=== PATIENT | male | born 1980 | race Caucasian/White ===

== ENCOUNTER 2019-10-08 11:57 | Emergency (ER) | payer OTHER ==
[~2019-10-08] VITALS: Ht 167.6 cm; Wt 90.7 kg
[~2019-10-08 11:57] MED LIST: ALBU8HFA2 INH; ALBU90I INH; ALBU90OI INH; ALBU90OI6 INH; AMOCLA875 PO; AMOX500 PO; AZIT250 PO; AZIT500 PO; BENADRYL25 MG PO; CEPH500 PO; CIPDEXSU OT; CIPR500 PO; CLIN150 PO; CLIN300 PO; CRUTCH USE; DIPH50; ERYT333ERA PO; FAMO40 PO; FLUO.05TC TOP; GUAPHELA PO; HYDACE10B PO; HYDACE5; HYDACE5 PO; HYDACE5325 PO; HYDACE7.5 PO; HYDCOR2.5C PR; HYDGUAL120 PO; HYDMOR2 PO; IBUHYD PO; IBUP200; IBUP200 PO; IBUP800; IBUP800 PO; KETO10 PO; META800 PO; METPRE4DP PO; MORP30ER PO; NAPR500 PO; NEOPOLHCSU OT; OMEP20ER PO; OXYACE5T PO; OXYACE7.5T PO; OXYC15ER PO; OXYC5 PO; PANT40 PO; PRED20 PO; PROM25 PO; Pepcid20 MG PO; Prednisone20 MG PO; Prednisone50 MG PO; RXOXYACE PO; SULTRIDS PO; TEMOVATE15 GM EXT; TRAM50 PO; [UNRECOGNIZED DRUG - OTHER]
[2019-10-08 12:15] LABS: BASOPHILS ABSOLUTE AUTO 0.07 K/mm3 (0.00-0.23); BASOPHILS PERCENT AUTO 1 % (0-2); EOSINOPHILS ABSOLUTE AUTO 0.23 K/mm3 (0.00-0.68); EOSINOPHILS PERCENT AUTO 3 % (0-6); Hematocrit 43.5 % (37.0-53.0); Hemoglobin 14.1 g/dL (13.5-17.5); IMMATURE GRAN ABSOLUTE AUTO 0.01 K/mm3 (0.00-0.10); IMMATURE GRAN PERCENT AUTO 0 % (0-1); LYMPHOCYTES ABSOLUTE AUTO 1.93 K/mm3 (0.84-5.20); LYMPHOCYTES PERCENT AUTO 25 % (21-46); MONOCYTES PERCENT AUTO 6 % (4-13); Mean Corpuscular HGB 28.8 pg (26.0-34.0); Mean Corpuscular HGB Conc 32.4 g/dL (31.5-36.5); Mean Corpuscular Volume 89 fL (80-100); Mean Platelet Volume 10.4 fL (9.1-12.4); NEUTROPHILS ABSOLUTE AUTO 5.07 K/mm3 (1.96-9.15); NEUTROPHILS PERCENT AUTO 65 % (41-73); Platelet Count 265 K/mm3 (150-400); RDW Coefficient Variation 13.3 % (11.7-14.2); RDW Standard Deviation 43.3 fL (35.1-46.3); Red Blood Cell Count 4.89 M/mm3 (4.30-5.90); White Blood Cell Count 7.81 K/mm3 (4.00-11.30)
[2019-10-08 12:28] LABS: International Normalized Ratio 0.92; Prothrombin Time Results 9.8 Sec (9.7-11.5)
[2019-10-08 12:29] LABS: Alanine Aminotransfer (ALT/SGP 48 U/L (12-78); Albumin, Blood 3.6 g/dL (3.4-5.0); Albumin/Globulin Ratio 1.1 (0.8-1.8); Alk Phos 58 U/L (50-136); Anion Gap 6 mmol/L (6-16); Aspartate Aminotrans (AST/SGOT 31 U/L (12-37); Bilirubin, Total 0.4 mg/dL (0.1-1.0); Blood Urea Nitrogen 19 mg/dL (8-24); Bun/Creatinine Ratio 20.8 (12.0-20.0); CO2, Blood 23 mmol/L (21-32); Calcium, Blood 8.7 mg/dL (8.5-10.1); Chloride, Blood 113 mmol/L (98-108); Creatinine, Blood 0.91 mg/dL (0.60-1.20); Globulin, Blood 3.2 g/dL (2.2-4.0); Glomerular Filtration Rate >60 (60-); Glucose, Blood 205 mg/dL (70-99); Potassium, Blood 3.5 mmol/L (3.5-5.5); Sodium, Blood 142 mmol/L (136-145); Total Protein, Blood 6.8 g/dL (6.4-8.2)
[2019-10-08 12:35] LABS: Ethanol (Alcohol), Blood, Med <3 mg/dL
[2019-10-08] MEDS ORDERED: Percocet 5-3251 EACH PO (14:07)
== END 2019-10-08 15:17 | disposition home or self-care (01) ==
LOC: ER 11:57
PROVIDERS: Emergency Medicine
DX: S82.421A Displaced transverse fracture of shaft of right fibula, initial encounter for closed fracture (principal); J45.909 Unspecified asthma, uncomplicated; V29.49XA Motorcycle driver injured in collision with other motor vehicles in traffic accident, initial encounter
CPT/HCPCS: 29515; 70450; 71260; 72125; 73590; 73610; 74177; 80053; 83690; 85025; 85610; 96374-59; 96375-59; 96376-59; 99285-25; G0480; J1170; J2405; Q9967

== ENCOUNTER 2019-10-16 01:46 | Emergency (ER) | payer OTHER ==
[~2019-10-16] VITALS: Ht 167.6 cm; Wt 90.7 kg
[~2019-10-16 01:46] MED LIST changes: +Percocet 5-3251 EACH PO
[2019-10-16] MEDS ORDERED: Percocet 5-3251 EACH PO (03:21)
== END 2019-10-16 03:34 | disposition home or self-care (01) ==
LOC: ER 01:46
DX: M79.661 Pain in right lower leg (principal); J45.909 Unspecified asthma, uncomplicated; F17.210 Nicotine dependence, cigarettes, uncomplicated; Z88.5 Allergy status to narcotic agent
CPT/HCPCS: 96372; 99283-25; A9270; J0780; J1200; J1885

== ENCOUNTER 2019-10-25 06:19 | Day surgery (SDC) | payer OTHER ==
[~2019-10-25] VITALS: Ht 165.1 cm; Wt 97.3 kg
--- NOTE | 2019-10-25 06:51 | NUR ---
History, Chart, Medications and Allergies reviewed before start of procedure. Patient confirms NPO status and agrees with scheduled surgery. Lungs clear T/O to Auscultation. Patient States Post-Procedure ride home has been arranged. Pre-Op teaching done. Pt verbalizes understanding. PATIENT STATES HE REFUSED TO USE THE CHLORHEXIDINE WITH HIS SHOWERS DUE TO THE WARNING NOT TO GET INTO HIS EYES, BUT HE STATES HE DID TAKE A SHOWER LAST NIGHT AND THIS MORNING. PATIENT REFUSED TO REMOVE HIS UNDERWEAR AND STATES UNDERSTANDING THAT IF THEY NEED TO, THEY WILL CUT THEM OFF.
--- NOTE | 2019-10-25 07:08 | NUR ---
FAMILY TO BEDSIDE. DR FIELD HERE, REMOVING CAST.
--- NOTE | 2019-10-25 10:50 | NUR ---
REVEIWED DISCHARGE INSTRUCTIONS WITH PATIENT. NO NAUSEA, TOLERATING PO WELL. GIRLFREIND RIDE HOME OUT AT THIS TIME. PATIENT REMAINS PAINFUL BUT FEELS THAT HE CAN MANAGE THIS AT HOME. MEDICATED WITH PERCOCET IN STEPDOWN FOR PAIN CONTROL. ENCOURAGED ICE AND ELEVATION FOR NEXT 48 HOURS. REPORT TO LAURA FLOWERS TO ASSUME CARE
--- NOTE | 2019-10-25 11:05 | NUR ---
Patient up to Ambulate independently. Gait steady. Discharge instructions reviewed with patient. Patient verbalizes understanding. Copy given to patient to take home. Discharged via wheelchair to private car for ride home. TOOK OVER CARE OF PATIENT FROM LIONEL PHAM AND READIED PATIENT TO GO HOME. THE PATIENT LEFT THE UNIT AT 1105, VIA WHEELCHAIR
--- NOTE | 2019-10-28 07:36 | NUR ---
10/28/19 0736 Caroline Jurado VERIFICATIONS: EDIT CHART.
== END 2019-10-25 11:10 | disposition home or self-care (01) ==
LOC: ORSCMMR 06:19
PROVIDERS: Podiatrist Foot & Ankle Surgery
PROC: 0YP90YZ Removal of Other Device from Right Lower Extremity, Open Approach (ICD-10-PCS; principal; 2019-10-25 07:30)
PROC: 0QSJ04Z Reposition Right Fibula with Internal Fixation Device, Open Approach (ICD-10-PCS; principal; 2019-10-25 07:30)
DX: S82.421A Displaced transverse fracture of shaft of right fibula, initial encounter for closed fracture (principal); Z96.9 Presence of functional implant, unspecified; V89.2XXA Person injured in unspecified motor-vehicle accident, traffic, initial encounter; J45.909 Unspecified asthma, uncomplicated; F17.210 Nicotine dependence, cigarettes, uncomplicated; F17.220 Nicotine dependence, chewing tobacco, uncomplicated
CPT/HCPCS: C1713; J0171; J0690; J1100; J1885; J2250; J2270; J2405; J2704; J3010; J7120

== ENCOUNTER 2019-12-11 15:12 | Emergency (ER) | payer OTHER ==
[~2019-12-11] VITALS: Ht 167.6 cm; Wt 90.7 kg
[2019-12-11 16:00] LABS: Influenza A Negative (NEGATIVE); Influenza B Negative (NEGATIVE)
[2019-12-11 16:13] LABS: BASOPHILS ABSOLUTE AUTO 0.03 K/mm3 (0.00-0.23); BASOPHILS PERCENT AUTO 1 % (0-2); EOSINOPHILS ABSOLUTE AUTO 0.02 K/mm3 (0.00-0.68); EOSINOPHILS PERCENT AUTO 0 % (0-6); Hematocrit 43.2 % (37.0-53.0); Hemoglobin 14.4 g/dL (13.5-17.5); IMMATURE GRAN ABSOLUTE AUTO 0.03 K/mm3 (0.00-0.10); IMMATURE GRAN PERCENT AUTO 1 % (0-1); LYMPHOCYTES ABSOLUTE AUTO 0.44 K/mm3 (0.84-5.20); LYMPHOCYTES PERCENT AUTO 8 % (21-46); MONOCYTES ABSOLUTE AUTO 0.45 K/mm3 (0.16-1.47); MONOCYTES PERCENT AUTO 8 % (4-13); Mean Corpuscular HGB 29.1 pg (26.0-34.0); Mean Corpuscular HGB Conc 33.3 g/dL (31.5-36.5); Mean Corpuscular Volume 87 fL (80-100); Mean Platelet Volume 10.5 fL (9.1-12.4); NEUTROPHILS ABSOLUTE AUTO 4.83 K/mm3 (1.96-9.15); NEUTROPHILS PERCENT AUTO 83 % (41-73); Platelet Count 205 K/mm3 (150-400); RDW Coefficient Variation 13.7 % (11.7-14.2); RDW Standard Deviation 43.6 fL (35.1-46.3); Red Blood Cell Count 4.95 M/mm3 (4.30-5.90)
[2019-12-11 16:30] LABS: Anion Gap 6 mmol/L (6-16); Blood Urea Nitrogen 13 mg/dL (8-24); Bun/Creatinine Ratio 17.7 (12.0-20.0); CO2, Blood 24 mmol/L (21-32); Calcium, Blood 8.6 mg/dL (8.5-10.1); Chloride, Blood 103 mmol/L (98-108); Creatinine, Blood 0.74 mg/dL (0.60-1.20); Glomerular Filtration Rate >60 (60-); Glucose, Blood 113 mg/dL (70-99); Sodium, Blood 133 mmol/L (136-145)
== END 2019-12-11 17:11 | disposition home or self-care (01) ==
LOC: ER 15:12
PROVIDERS: Physician Assistant
DX: J11.1 Influenza due to unidentified influenza virus with other respiratory manifestations (principal); F17.210 Nicotine dependence, cigarettes, uncomplicated; Z88.5 Allergy status to narcotic agent
CPT/HCPCS: 36415; 80048; 85025; 87804; 99283

== ENCOUNTER 2020-07-28 20:43 | Emergency (ER) | payer OTHER ==
[~2020-07-28] VITALS: Ht 167.6 cm; Wt 90.7 kg
[2020-07-28] MEDS ORDERED: BENADRYL25 MG PO (22:17)
== END 2020-07-28 22:46 | disposition home or self-care (01) ==
LOC: ER 20:43
DX: T63.441A Toxic effect of venom of bees, accidental (unintentional), initial encounter (principal); F17.210 Nicotine dependence, cigarettes, uncomplicated; Z88.5 Allergy status to narcotic agent
CPT/HCPCS: J3301; Q0163